=== PATIENT | male | born 1965 | race Caucasian/White ===

== ENCOUNTER 2021-10-26 20:40 | Observation (INO) ==
[2021-10-26] MEDS ORDERED: NITROGLYCERIN 2% OINTMENT 30GM TUBE EXT STA (20:54)
[2021-10-26 21:13] LABS: Basophils # (auto) 0.02 K/uL (0-0.2); Basophils % (auto) 0.2 %; Eosinophils # (auto) 0.25 K/uL (0-0.5); Eosinophils % (auto) 2.9 %; Hematocrit (blood only) 40.3 % (42-52); Hemoglobin 13.8 g/dL (14.0-18.0); Lymphocytes # (auto) 1.72 K/uL (1.2-3.4); Lymphocytes % (auto) 20.1 %; Mean Corpuscular Hemoglobin 30.9 pg (25-34); Mean Corpuscular Hgb Conc 34.2 g/dL (32-36); Mean Corpuscular Volume 90.2 fL (80-100); Monocytes # (auto) 1.13 K/uL (0.11-0.59); Monocytes % (auto) 13.2 %; Neutrophils # (auto) 5.44 K/uL (1.4-6.5); Neutrophils % (auto) 63.6 %; Platelet Count 198 K/uL (130-400); RDW Coefficient of Variation 13.7 % (11.5-14.5); Red Blood Count 4.47 M/uL (4.7-6.1); White Blood Count 8.56 K/uL (4.8-10.8)
--- NOTE | 2021-10-26 21:15 | Emergency Department Note ---
Impression & Plan Precordial chest pain ED Provider Note NAME: JACQUES JAIN AGE: 56 SEX: M : 1965 ARRIVES VIA: Ambulance INFORMANT: [Patient] ED PROVIDER(S): [Leonard Chaparro MD] CHIEF COMPLAINT: Chest pain HISTORY OF PRESENT ILLNESS: The patient is a 56-year-old male presents to the ER with about 2 days of chest discomfort. The pain is a weight across the center of his chest and is a 5/10. There is some radiation to his back. The patient states the pain got a bit better after taking some ygly-spt-ucrdvaq pain meds. He did try some antacids with no relief. Today, the pain seemed to worsen a bit. He went to [facility] and was referred to the ER. At [facility], he was given 4 baby aspirin, he received 3 nitroglycer[address] sprays on the way to our ED, this really did not help. The patient has no known heart disease. He does have some anxiety and blood pressure issues. He does not smoke. His father has had cardiac stenting. Of note, the patient did return from [place] about a week and a half ago. He has no history of DVT or PE. The patient states that he did take a Xanax tablet yesterday morning before a meeting. He did well in the meeting. His pain started after the meeting and after the stress of the day was over. REVIEW OF SYSTEMS: See HPI for pertinent positives and negatives. A total of ten systems were reviewed and were otherwise negative. PMHx/PSHx: See Below SOCIAL HISTORY: See Below. PHYSICAL EXAM: GENERAL: Patient is in no acute distress. HEENT: No acute trauma, normocephalic atraumatic, mucous membranes moist, no nasal congestion, no scleral icterus. NECK: No stridor, no adenopathy, no meningismus, trachea is midline. LUNGS: Clear to auscultation bilaterally, no wheeze, no rhonchi, breath sounds equal. HEART: Without murmurs gallops or rubs, regular rate and rhythm. Chest: Very mildly tender across the midsternal chest wall. ABDOMEN: Soft, nontender, bowel sounds positive, no hernias, no peritonitis. EXTREMITIES: No cyanosis or edema, full range of motion of all the joints without pain or difficulty, no signs for acute trauma. NEUROLOGIC: Oriented x 3, no acute motor or sensory deficits, no focal weakness. SKIN: No rash, no jaundice, no diaphoresis. DIFFERENTIAL DIAGNOSIS: Cardiac ischemia, aortic dissection, pulmonary embolism, pneumothorax, pneumonia, pericarditis, myocarditis, esophageal rupture, GERD, cholecystitis, pancreatitis, musculoskeletal, as well as other pathologies. EMERGENCY DEPARTMENT COURSE/PROCEDURES: ECG: Indication was chest pain. The ECG shows a sinus tachycardia with a rate of 102. There is no ST elevation, no PVCs. The QTc is 469. Continuous Cardiac Monitoring: An order was placed for continuous cardiac monitoring. The monitor shows a rate of 90 with normal sinus rhythm. MEDICAL DECISION MAKING: There is no leukocytosis or concerning anemia. There is a normal platelet count. No significant electrolyte abnormality or renal failure. No concerning liver enzyme elevation. ECG shows a sinus tachycardia, no ST elevation. Cardiac enzyme testing x1 is not consistent with acute cardiac injury. No evidence for pancreatitis. Chest film does not show pneumonia, mediastinal widening or CHF. Chest CT does not show PE or evidence for aortic dissection. The patient was given nitroglycerin paste, he seems comfortable. He feels improved. The patient presents with chest discomfort. He does have some cardiac risk factors. I do think a hospital stay and further cardiac work-up would be warranted. I did speak with the patient and case management. The on-call hospitalist was consulted. Past Med/Surg History Medical History Hypertension Social History Smoking Status: Unknown if ever smoked Feels Safe at Home: Yes Allergies Allergies Allergy/AdvReac Type Severity Reaction Status Date / Time amoxicillin Allergy Hives, Verified 10/26/21 21:46 nausea & vomiting Home Meds Home Medications Medication Instructions Recorded Confirmed alprazolam 0.5 mg tablet 0.5 mg PO DAILY PRN 10/26/21 10/26/21 cholecalciferol (vitamin D3) 125 125 mcg PO DAILY 10/26/21 10/26/21 mcg (5,000 unit) tablet (Vitamin D3) coQ10 (ubiquinol) 100 mg capsule 0 mg PO DAILY 10/26/21 10/26/21 irbesartan 150 mg tablet 150 mg PO DAILY 10/26/21 10/26/21 magnesium oxide 400 mg PO 4XWK 10/26/21 10/26/21 multivitamin 1 tab PO DAILY 10/26/21 10/26/21 rosuvastatin 10 mg tablet 10 mg PO DAILY 10/26/21 10/26/21 zinc 25 mg tablet 0 mg PO 4XWK 10/26/21 10/26/21 Results & Data (ED) Vital Signs Vital Signs - 24 hr 10/26/21 20:49 10/26/21 21:09 10/26/21 21:15 Temperature 36.9 C Temperature Source Oral Pulse Rate 102 H 90 89 Pulse Rate from SpO2 Sensor 89 Pulse Rhythm Regular Regular Respiratory Rate 14 18 22 Respiratory Effort / Characteristics Non-Labored Spontaneous Respiratory Depth Normal Respiratory Pattern Regular Blood Pressure 138/86 Blood Pressure Mean 103 Blood Pressure Position Sitting Pulse Oximetry 95 98 98 Oxygen Delivery Method Room Air Room Air Sepsis Recent Fever Within 48 Hours No Sepsis New/Unexplained Change in Mental Status N/A Sepsis Action Taken by Nursing No Action Required 10/26/21 21:30 10/26/21 22:00 10/26/21 22:18 Temperature Temperature Source Pulse Rate Pulse Rate from SpO2 Sensor 89 97 H Pulse Rhythm Respiratory Rate 22 21 Respiratory Effort / Characteristics Respiratory Depth Respiratory Pattern Blood Pressure 147/79 H 145/88 H Blood Pressure Mean 101 107 Blood Pressure Position Pulse Oximetry 97 96 Oxygen Delivery Method Room Air Sepsis Recent Fever Within 48 Hours Sepsis New/Unexplained Change in Mental Status Sepsis Action Taken by Nursing 10/26/21 22:30 10/26/21 22:52 10/26/21 23:00 Temperature Temperature Source Pulse Rate 88 94 H 90 Pulse Rate from SpO2 Sensor 89 Pulse Rhythm Respiratory Rate 21 15 20 Respiratory Effort / Characteristics Respiratory Depth Respiratory Pattern Blood Pressure 139/79 125/68 125/72 Blood Pressure Mean 99 87 89 Blood Pressure Position Pulse Oximetry 96 Oxygen Delivery Method Sepsis Recent Fever Within 48 Hours Sepsis New/Unexplained Change in Mental Status Sepsis Action Taken by [facility] Medications Current Medication List: was personally reviewed by me Laboratory Data Attestation: I reviewed the patient's lab results. Result diagrams: 10/26/21 21:00 10/26/21 22:54 Lab Results 10/26/21 10/26/21 10/26/21 Range/Units 21:00 21:00 21:00 WBC 8.56 (4.8-10.8) K/uL RBC 4.47 L (4.7-6.1) M/uL Hgb 13.8 L (14.0-18.0) g/dL Hct 40.3 L (42-52) % MCV 90.2 (80-100) fL MCH 30.9 (25-34) pg MCHC 34.2 (32-36) g/dL RDW Std Deviation 45.0 (36.4-46.3) fL RDW Coeff of Shanae 13.7 (11.5-14.5) % Plt Count 198 (130-400) K/uL MPV 9.0 (7.4-10.4) fL Immature Gran % (Auto) 0.0 % Neut % (Auto) 63.6 % Lymph % (Auto) 20.1 % [place] % (Auto) 13.2 % Eos % (Auto) 2.9 % Baso % (Auto) 0.2 % Neut # (Auto) 5.44 (1.4-6.5) K/uL Lymph # (Auto) 1.72 (1.2-3.4) K/uL [place] # (Auto) 1.13 H (0.11-0.59) K/uL Eos # (Auto) 0.25 (0-0.5) K/uL Baso # (Auto) 0.02 (0-0.2) K/uL Immature Gran # (Auto) 0.00 (0.00-0.02) K/uL PT 10.3 (9.0-12.0) Seconds INR 1.0 (0.9-1.1) APTT 23.5 (21.0-31.0) Seconds PTT Ratio 0.9 Sodium 139 (136-145) mmol/L Potassium (3.5-5.1) mmol/L Chloride 103 (98-107) mmol/L Carbon Dioxide 28 (21-32) mmol/L Anion Gap 8 (3-11) BUN 17 (6-23) mg/dl Creatinine 1.04 (0.6-1.4) mg/dl Est Cr Clr Drug Dosing Not Reportable Est GFR ( Amer) 93.9 ml/min Est GFR (Non-Af Amer) 81.0 ml/min BUN/Creatinine Ratio 16.3 (10-20) Glucose 127 H (70-99(Fasting)) mg/dl Calcium 8.7 (8.5-10.1) mg/dl Total Bilirubin 0.4 (0.2-1.0) mg/dl AST (13-39) U/L ALT 32 (7-52) U/L Alkaline Phosphatase 51 (34-104) U/L Troponin I < 0.03 (0-0.04) ng/ml Total Protein 6.8 (6.0-8.3) gm/dl Albumin 4.3 (3.4-5.0) gm/dl Globulin 2.5 (2.5-4.0) gm/dl Albumin/Globulin Ratio 1.7 (0.9-2) Lipase 21 (11-82) U/L 10/26/21 10/26/21 Range/Units 22:17 22:54 WBC (4.8-10.8) K/uL RBC (4.7-6.1) M/uL Hgb (14.0-18.0) g/dL Hct (42-52) % MCV (80-100) fL MCH (25-34) pg MCHC (32-36) g/dL RDW Std Deviation (36.4-46.3) fL RDW Coeff of Shanae (11.5-14.5) % Plt Count (130-400) K/uL MPV (7.4-10.4) fL Immature Gran % (Auto) % Neut % (Auto) % Lymph % (Auto) % [place] % (Auto) % Eos % (Auto) % Baso % (Auto) % Neut # (Auto) (1.4-6.5) K/uL Lymph # (Auto) (1.2-3.4) K/uL [place] # (Auto) (0.11-0.59) K/uL Eos # (Auto) (0-0.5) K/uL Baso # (Auto) (0-0.2) K/uL Immature Gran # (Auto) (0.00-0.02) K/uL PT (9.0-12.0) Seconds INR (0.9-1.1) APTT (21.0-31.0) Seconds PTT Ratio Sodium (136-145) mmol/L Potassium 3.8 (3.5-5.1) mmol/L Chloride (98-107) mmol/L Carbon Dioxide (21-32) mmol/L Anion Gap (3-11) BUN (6-23) mg/dl Creatinine (0.6-1.4) mg/dl Est Cr Clr Drug Dosing Est GFR ( Amer) ml/min Est GFR (Non-Af Amer) ml/min BUN/Creatinine Ratio (10-20) Glucose (70-99(Fasting)) mg/dl Calcium (8.5-10.1) mg/dl Total Bilirubin (0.2-1.0) mg/dl AST 18 (13-39) U/L ALT (7-52) U/L Alkaline Phosphatase (34-104) U/L Troponin I (0-0.04) ng/ml Total Protein (6.0-8.3) gm/dl Albumin (3.4-5.0) gm/dl Globulin (2.5-4.0) gm/dl Albumin/Globulin Ratio (0.9-2) Lipase (11-82) U/L Administered Medications Discontinued Medications Ioversol (Optiray 320 125ml) 125 ml IV ONCE ONE Stop: 10/26/21 22:57 Last Admin: 10/26/21 22:56 Dose: 118 ml Documented by: [id number] Nitroglycerin (Nitroglycerin 2% Ointment 30gm Tube) 1 inch EXT NOW STA Stop: 10/26/21 20:55 Last Admin: 10/26/21 21:11 Dose: 1 inch Documented by: [id number] Imaging Data Attestation: I personally reviewed and interpreted this imaging study as follows: My Impression: Chest x-ray: There is no mediastinal widening, pneumonia or pneumothorax. Radiologist's Impression: CTA CHEST: No prior exam for comparison. Minimal posterior subpleural atelectasis, otherwise normal lung parenchyma. No acute cardiopulmonary process seen. No pleural effusion or pneumothorax. Normal cardiac size. Mild atherosclerotic disease throughout the aortic arch otherwise normal aorta with no dissection or aneurysm. No pulmonary embolus. Visualized upper abdominal structures are unremarkable. Degenerative disease of the spine. Radiologist: Vicky Hernandez MD Discharge Plan Visit Data Chief Complaint: Chest Pain Stated Complaint: CHEST PAIN ED Provider: Leonard Chaparro Discharge Problem: Precordial chest pain Patient Disposition: Admitted As Inpatient Condition: Good Forms Stand Alone Forms: My [employer] Prescriptions Prescriptions: No Action multivitamin Tablet 1 tab PO DAILY RF: 0 alprazolam 0.5 mg tablet 0.5 mg PO DAILY PRN (Reason: Anxiety) RF: 0 zinc 25 mg Tablet 0 mg PO 4XWK RF: 0 irbesartan 150 mg tablet 150 mg PO DAILY RF: 0 rosuvastatin 10 mg tablet 10 mg PO DAILY RF: 0 cholecalciferol (vitamin D3) [Vitamin D3] 125 mcg (5,000 unit) Tablet 125 mcg PO DAILY RF: 0 coQ10 (ubiquinol) 100 mg Capsule 0 mg PO DAILY RF: 0 magnesium oxide 400 mg magnesium Tablet 400 mg PO 4XWK RF: 0 Referrals Referrals: PCP,NO [Physician] -
[2021-10-26 21:24] LABS: Partial Thromboplastin Ratio 0.9; Partial Thromboplastin Time 23.5 Seconds (21.0-31.0); Prothrombin Time 10.3 Seconds (9.0-12.0)
[2021-10-26 21:36] LABS: Troponin I < 0.03 ng/ml (0-0.04)
[2021-10-26 21:58] LABS: Alanine Aminotransferase 32 U/L (7-52); Albumin Globulin Ratio 1.7 (0.9-2); Albumin Level 4.3 gm/dl (3.4-5.0); Alkaline Phosphatase 51 U/L (34-104); Anion Gap 8 (3-11); BUN Creatinine Ratio 16.3 (10-20); Bilirubin,Total 0.4 mg/dl (0.2-1.0); Blood Urea Nitrogen 17 mg/dl (6-23); Calcium 8.7 mg/dl (8.5-10.1); Carbon Dioxide 28 mmol/L (21-32); Chloride 103 mmol/L (98-107); Est GFR (African American) 93.9 ml/min; Globulin 2.5 gm/dl (2.5-4.0); Glucose 127 mg/dl (70-99(Fasting)); Lipase 21 U/L (11-82); Sodium 139 mmol/L (136-145); Total Protein 6.8 gm/dl (6.0-8.3)
[2021-10-26] MEDS ORDERED: OPTIRAY 320 125ml IV ONE (22:56)
[2021-10-26 23:37] LABS: Potassium 3.8 mmol/L (3.5-5.1)
[2021-10-27] MEDS ORDERED: ACETAMINOPHEN 500 MG TAB PO PRN (00:23)
[2021-10-27] MEDS ORDERED: ONDANSETRON INJ 2 MG/ML 2 ML VIAL IV PRN (00:23)
--- NOTE | 2021-10-27 00:27 | History & Physical Report ---
Date of Service October 27, 2021 Assessment & Plan (1) Anxiety: Plan: 56-year-old gentleman with a past medical history of hypertension, hyperlipidemia, anxiety presents for evaluation of 2 days of chest discomfort being admitted for chest pain rule out. #Chest pain rule out Patient presenting with a 2-day history of chest pain, has not experienced previous chest pain describes the pain as a heavy weight in the center of his chest. He does have a family history of coronary artery disease with stenting and is currently on rosuvastatin for hyperlipidemia. Patient symptoms are aggravated with exertion and alleviated by rest. Patient did not respond to aspirin or nitroglycerin therapy. ECG and admission labs are not consistent with myocardial infarction. -admit to telemetry for observation -Stress echo in the morning -EKG with chest pain -Follow-up cardiac labs -Will check amylase and lipase to rule out alternative etiologies -Continue to reviewed the importance of risk factor modification with the patient -Day team to decide the need for cardiology consultation #Hyperlipidemia -Continue rosuvastatin 10 mg #Hypertension -Continue irbesartan 150 mg p.o. daily #Anxiety -As needed Xanax 0.5 mg FENa: N.p.o. for stress echo Code Status: Full code DVT PPX: Lovenox PT/OT: Not indicated Case Management: Not indicated Dispo: Telemetry Nick Centeno MD PGY 3, FCM This chart was completed utilizing [employer] voice recognition software. Grammatical errors, random word insertions, pronoun errors, and in complete sentences are an occasional consequence of the system. Any questions or concerns about the content, text, or information contained within the body of this dictation should be addressed directly to the physician for clarification. (2) HLD (hyperlipidemia): (3) Chest pain: History of Present Illness Primary Care Provider: Isacc Live MD 56-year-old gentleman with a past medical history of hypertension, hyperlipidemia, anxiety presents for evaluation of 2 days of chest discomfort being admitted for chest pain rule out. Patient has been in his usual state of health recently denying any fevers or chills, nausea or vomiting, chest pressure or focal neurological symptoms. He notes that for the past 2 days he has been experiencing pain which she describes the weight across the center of his chest and rates as a 5 out of 10 with some radiation to his back. Patient states that his symptoms improved with some [id number] pain medications he tried antacids without relief. This morning the pain seemed to worsen a bit so he went to [facility] and was referred to the emergency department at [facility] he was given 4 baby aspirin, in route to the hospital he received 3 nitroglycerin sprays and these did not improve his symptoms. Patient has no known history of heart disease, his father has a history of coronary artery disease requiring stenting does have a history of anxiety. Patient notes that he took a Xanax yesterday morning before meeting, he did well in the meeting. He notes that his pain started after the meeting. He does think that his pain is exacerbated with exertion. Upon arrival to the emergency department EKG was obtained showing sinus tachycardia with a rate of [address] elevations no PVCs, QTC was 469. Routine l abs were obtained, CBC was notable for hemoglobin of 13.8, normal white count, coagulation studies were normal, serum chemistries were normal creatinine 1.04, liver function studies were normal, troponin was negative. Chest x-ray was negative, chest CTA demonstrating mild atherosclerotic disease through the at the aortic arch otherwise negative chest x-ray was negative. Given patient's presentation, hospital service was consulted for admission for chest pain rule out. Allergies Allergy/AdvReac Type Severity Reaction Status Date / Time amoxicillin Allergy Hives, Verified 10/26/21 21:46 nausea & vomiting Home Medications Medication Instructions Recorded Confirmed Type alprazolam 0.5 mg tablet 0.5 mg PO DAILY PRN 10/26/21 10/26/21 History cholecalciferol (vitamin D3) 125 125 mcg PO DAILY 10/26/21 10/26/21 History mcg (5,000 unit) tablet (Vitamin D3) coQ10 (ubiquinol) 100 mg capsule 0 mg PO DAILY 10/26/21 10/26/21 History irbesartan 150 mg tablet 150 mg PO DAILY 10/26/21 10/26/21 History magnesium oxide 400 mg PO 4XWK 10/26/21 10/26/21 History multivitamin 1 tab PO DAILY 10/26/21 10/26/21 History rosuvastatin 10 mg tablet 10 mg PO DAILY 10/26/21 10/26/21 History zinc 25 mg tablet 0 mg PO 4XWK 10/26/21 10/26/21 History Past Med/Surg History Medical History (Updated 10/27/21 @ 00:19 by Nick Centeno MD) Hypertension Social History Smoking Status: Unknown if ever smoked Feels Safe at Home: Yes Review of Systems Review of Systems: as above Physical Exam Physical Exam: General: No acute distress HEENT: Normocephalic atraumatic Neck: No significant lymphadenopathy, trachea midline, normal to visual in spection Cardiac: Regular rate and rhythm, normal S1, normal S2, I did not appreciated any significant murmurs rubs or gallops, I did not appreciate any significant pedal edema, No calf tenderness, capillary refill is less than 3 seconds Respiratory: Clear to auscultation bilaterally with symmetrical chest rise, I did not appreciate any significant wheezes, rales, rhonchi, no increased work of breathing GI: Normal bowel sounds, soft, nontender in all 4 quadrants, nondistended MSK: No sensory or motor changes, moves all extremities without issue, extremities are warm and well-perfused Skin: [place], clean, dry, intact. Neuro: Alert and oriented x4 Psych: Calm, cooperative, logical thought process Results & Data Results & Data ([facility]) Vital Signs (Past 12 Hours) Vital Signs Temp Pulse Resp BP Pulse Ox 10/26/21 23:00 90 20 125/72 10/26/21 22:52 94 H 15 125/68 10/26/21 22:30 88 21 139/79 96 10/26/21 22:00 21 145/88 H 96 10/26/21 21:30 22 147/79 H 97 10/26/21 21:15 89 22 98 10/26/21 21:09 90 18 98 10/26/21 20:49 36.9 C 102 H 14 138/86 95 Laboratory Results 10/26/21 10/26/21 10/26/21 Range/Units 22:54 22:17 21:00 WBC (4.8-10.8) K/uL RBC (4.7-6.1) M/uL Hgb (14.0-18.0) g/dL Hct (42-52) % MCV (80-100) fL MCH (25-34) pg MCHC (32-36) g/dL RDW Std Deviation (36.4-46.3) fL RDW Coeff of Shanae (11.5-14.5) % Plt Count (130-400) K/uL MPV (7.4-10.4) fL Immature Gran % (Auto) % Neut % (Auto) % Lymph % (Auto) % [place] % (Auto) % Eos % (Auto) % Baso % (Auto) % Neut # (Auto) (1.4-6.5) K/uL Lymph # (Auto) (1.2-3.4) K/uL [place] # (Auto) (0.11-0.59) K/uL Eos # (Auto) (0-0.5) K/uL Baso # (Auto) (0-0.2) K/uL Immature Gran # (Auto) (0.00-0.02) K/uL PT (9.0-12.0) Seconds INR (0.9-1.1) APTT (21.0-31.0) Seconds PTT Ratio Sodium 139 (136-145) mmol/L Potassium 3.8 (3.5-5.1) mmol/L Chloride 103 (98-107) mmol/L Carbon Dioxide 28 (21-32) mmol/L Anion Gap 8 (3-11) BUN 17 (6-23) mg/dl Creatinine 1.04 (0.6-1.4) mg/dl Est Cr Clr Drug Dosing Not Reportable Est GFR ( Amer) 93.9 ml/min Est GFR (Non-Af Amer) 81.0 ml/min BUN/Creatinine Ratio 16.3 (10-20) Glucose 127 H (70-99(Fasting)) mg/dl Calcium 8.7 (8.5-10.1) mg/dl Total Bilirubin 0.4 (0.2-1.0) mg/dl AST 18 (13-39) U/L ALT 32 (7-52) U/L Alkaline Phosphatase 51 (34-104) U/L Troponin I < 0.03 (0-0.04) ng/ml Total Protein 6.8 (6.0-8.3) gm/dl Albumin 4.3 (3.4-5.0) gm/dl Globulin 2.5 (2.5-4.0) gm/dl Albumin/Globulin Ratio 1.7 (0.9-2) Lipase 21 (11-82) U/L 10/26/21 10/26/21 Range/Units 21:00 21:00 WBC 8.56 (4.8-10.8) K/uL RBC 4.47 L (4.7-6.1) M/uL Hgb 13.8 L (14.0-18.0) g/dL Hct 40.3 L (42-52) % MCV 90.2 (80-100) fL MCH 30.9 (25-34) pg MCHC 34.2 (32-36) g/dL RDW Std Deviation 45.0 (36.4-46.3) fL RDW Coeff of Shanae 13.7 (11.5-14.5) % Plt Count 198 (130-400) K/uL MPV 9.0 (7.4-10.4) fL Immature Gran % (Auto) 0.0 % Neut % (Auto) 63.6 % Lymph % (Auto) 20.1 % [place] % (Auto) 13.2 % Eos % (Auto) 2.9 % Baso % (Auto) 0.2 % Neut # (Auto) 5.44 (1.4-6.5) K/uL Lymph # (Auto) 1.72 (1.2-3.4) K/uL [place] # (Auto) 1.13 H (0.11-0.59) K/uL Eos # (Auto) 0.25 (0-0.5) K/uL Baso # (Auto) 0.02 (0-0.2) K/uL Immature Gran # (Auto) 0.00 (0.00-0.02) K/uL PT 10.3 (9.0-12.0) Seconds INR 1.0 (0.9-1.1) APTT 23.5 (21.0-31.0) Seconds PTT Ratio 0.9 Sodium (136-145) mmol/L Potassium (3.5-5.1) mmol/L Chloride (98-107) mmol/L Carbon Dioxide (21-32) mmol/L Anion Gap (3-11) BUN (6-23) mg/dl Creatinine (0.6-1.4) mg/dl Est Cr Clr Drug Dosing Est GFR ( Amer) ml/min Est GFR (Non-Af Amer) ml/min BUN/Creatinine Ratio (10-20) Glucose (70-99(Fasting)) mg/dl Calcium (8.5-10.1) mg/dl Total Bilirubin (0.2-1.0) mg/dl AST (13-39) U/L ALT (7-52) U/L Alkaline Phosphatase (34-104) U/L Troponin I (0-0.04) ng/ml Total Protein (6.0-8.3) gm/dl Albumin (3.4-5.0) gm/dl Globulin (2.5-4.0) gm/dl Albumin/Globulin Ratio (0.9-2) Lipase (11-82) U/L Supervising Physician Co-Signing Physician Notes Patient seen and examined, chart reviewed. I agree with the assessment and plan as above Patient with left sided chest discomfort - ongoing x 2 days 56yo male, h/o HTN, HLP Troponin negative EKG with no acute ischemic changes Exam is unremarkable. Patient afebrile, HD stable No CW tenderness Lungs CTA Abd soft, NT/ND Ext warm, well perfused Assessment/Plan -Trend troponin -Cardiac monitoring -Stress test in AM -Remainder as above
[2021-10-27 01:21] LABS: Basophils # (auto) 0.02 K/uL (0-0.2); Basophils % (auto) 0.2 %; Eosinophils % (auto) 2.4 %; Hematocrit (blood only) 40.7 % (42-52); Hemoglobin 14.1 g/dL (14.0-18.0); Immature Granulocytes # (auto) 0.01 K/uL (0.00-0.02); Immature Granulocytes % (auto) 0.1 %; Lymphocytes # (auto) 1.65 K/uL (1.2-3.4); Lymphocytes % (auto) 19.9 %; Mean Corpuscular Hemoglobin 31.3 pg (25-34); Mean Corpuscular Hgb Conc 34.6 g/dL (32-36); Mean Corpuscular Volume 90.4 fL (80-100); Mean Platelet Volume 8.8 fL (7.4-10.4); Monocytes # (auto) 1.23 K/uL (0.11-0.59); Monocytes % (auto) 14.8 %; Neutrophils # (auto) 5.18 K/uL (1.4-6.5); Neutrophils % (auto) 62.6 %; Platelet Count 214 K/uL (130-400); RDW Coefficient of Variation 13.7 % (11.5-14.5); White Blood Count 8.29 K/uL (4.8-10.8)
--- NOTE | 2021-10-27 01:30 | Billing Data ---
Date of Service October 27, 2021 Coding Level of Care Code INT OBSERVATION CARE 50M LVL 2
[2021-10-27 01:42] LABS: Alanine Aminotransferase 30 U/L (7-52); Albumin Globulin Ratio 1.8 (0.9-2); Albumin Level 4.4 gm/dl (3.4-5.0); Alkaline Phosphatase 47 U/L (34-104); Amylase 48 U/L (25-115); Anion Gap 6 (3-11); Aspartate Aminotransferase 18 U/L (13-39); BUN Creatinine Ratio 19.3 (10-20); Bilirubin,Total 0.4 mg/dl (0.2-1.0); Blood Urea Nitrogen 17 mg/dl (6-23); Calcium 8.7 mg/dl (8.5-10.1); Carbon Dioxide 30 mmol/L (21-32); Chloride 104 mmol/L (98-107); Chol HDL Ratio 3.7 (0-5); Cholesterol 161 mg/dl (0-200); Est GFR (African American) 112.9 ml/min; Est GFR (Non-African American) 97.4 ml/min; Globulin 2.5 gm/dl (2.5-4.0); Glucose 97 mg/dl (70-99(Fasting)); HDL Cholesterol 43 mg/dl; LDL Cholesterol Calculated 91 mg/dl; Lipase 90 U/L (11-82); Sodium 140 mmol/L (136-145); Total Protein 6.9 gm/dl (6.0-8.3); Triglycerides 136 mg/dl (0-150); Troponin I < 0.03 ng/ml (0-0.04); VLDL Cholesterol 27 mg/dl (0-30)
[2021-10-27] MEDS ORDERED: ALPRAZolam 0.5 MG TABLET PO PRN (01:46)
[2021-10-27 01:53] LABS: Appearance Urine Clear (Clear); Bilirubin Urine Negative (Negative); Blood Urine Negative (Negative); Color Urine Yellow; Glucose Urine UA Negative (Negative); Ketones Urine Negative (Negative); Leukocyte Esterase Urine Negative (Negative); Nitrite Urine Negative (Negative); Protein Urine Negative (Negative); Specific Gravity Urine > 1.045 (1.000-1.030); Urobilinogen Urine Negative (Negative)
--- NOTE | 2021-10-27 07:11 | XRay Report ---
XR chest 1V portable CLINICAL HISTORY: Chest Pain. COMPARISON STUDY: No previous studies for comparison. TECHNIQUE: 1 view of the chest FINDINGS: Single frontal view of the chest demonstrates the cardiomediastinal silhouette to be within normal li mits. The lungs are clear of alveolar opacities. There is no evidence for pleural effusion. There is no evidence for vascular congestion. There is no acute osseous pathology. IMPRESSION: 1. No acute cardiopulmonary disease. ACT 112: Negative or not required by law. Electronically signed by: Noel Cheng M.D. 10/27/2021 7:10 AM
--- NOTE | 2021-10-27 07:16 | Hospitalist Progress Note ---
Date of Service October 27, 2021 Assessment & Plan (1) Chest pain: Plan: Aguilar is a 56 year old male w/ PMHx HTN, HLD, anxiety admitted for angina/coronary artery disease rule out. Chest Pain: -Patient with scheduled stress testing this morning. If positive consider cardiac catheterization to look for coronary artery stenosis contributing to chest pain. -Amylase, lipase unremarkable. Troponin <0.03 x2. -On telemetry. Continue to monitor for changes. HLD: -Continue home rosuvastatin. HTN: -Continue home Irbesartan. Anxiety: -Continue Xanax 0.5mg PRN. Dispo: Med/Tele Code Status: Full Code DVT PPX: Lovenox 40mg daily. (2) HLD (hyperlipidemia): (3) Hypertension: (4) Anxiety: Admission and Anticipated Discharge Date Admission Date: October 27, 2021 Subjective No overnight events. Patient endorsed that he had chest pain that felt like a burning during the middle of his morning meeting. The pain started at the center of the chest and would go up into his throat if he bent over. He has a history of reflux but did not eat anything prior to the onset of the chest pain. Said he tried to eat food afterwards to see if it would help but did not change the pain. This is the first time he has gotten the chest pain. Denies any chest pain this morning, shortness of breath, nausea or vomiting, fevers, chills. Physical Exam Constitutional: WD/WN, vitals as above Eyes: PERRL, conjunctivae normal, anicteric sclerae Respiratory: normal respiratory effort, lungs clear to auscultation Cardiovascular: RRR, no murmur, no edema No reproducable pain at sternum/costal margins. Gastrointestinal (Abdomen): normal bowel sounds, soft, nontender, no hepatosplenomegaly Results & Data Results & Data ([facility]) Vital Signs (Past 12 Hours) Vital Signs Temp Pulse Pulse Resp BP BP Pulse Ox 10/27/21 03:21 36.8 C 78 16 97/57 L 96 10/27/21 01:55 36.7 C 87 18 115/65 96 10/27/21 01:40 36.9 C 82 18 118/80 97 10/27/21 01:21 79 21 10/27/21 01:10 81 23 10/27/21 01:06 91 H 21 10/27/21 00:40 86 21 10/27/21 00:30 79 16 113/70 10/27/21 00:20 79 18 10/27/21 00:10 77 17 10/27/21 00:00 82 19 123/70 10/26/21 23:50 85 30 H 10/26/21 23:40 86 22 10/26/21 23:30 91 H 19 126/69 10/26/21 23:20 93 H 17 10/26/21 23:10 98 H 20 10/26/21 23:00 90 20 125/72 10/26/21 22:52 94 H 15 125/68 10/26/21 22:30 88 21 139/79 96 10/26/21 22:00 21 145/88 H 96 10/26/21 21:30 22 147/79 H 97 10/26/21 21:15 89 22 98 10/26/21 21:09 90 18 98 10/26/21 20:49 36.9 C 102 H 14 138/86 95
--- NOTE | 2021-10-27 08:05 | CT Scan Report ---
CT ANGIOGRAPHY OF THE CHEST, PULMONARY EMBOLUS PROTOCOL CLINICAL HISTORY: Shortness of breath. Chest pain. Back pain. Evaluate for pulmonary embolus. COMPARISON STUDY: Chest radiograph October 26, 2021. TECHNIQUE: Following IV administration of 118 mL of Optiray, helical axial images of the chest were o btained utilizing the pulmonary embolus protocol. Maximal intensity projections and sagittal and cor onal reformats were viewed on an independent 3D workstation. IV contrast was administered without co mplication. Automated exposure control was utilized for the study. A dose lowering technique was ut ilized adhering to the principles of ALARA. CT DOSE: 783.39 mGy.cm FINDINGS: No pulmonary emboli are identified although the lower lobe pulmonary arteries are suboptim ally opacified. There is no thoracic aortic dissection. Size of the heart is within normal limits. No pericardial effusion. No enlarged thoracic lymph nodes are noted. There is no consolidation to sugge st pneumonia. No pneumothorax or pleural effusion is noted. Linear and groundglass opacities reflect atelectasis. A 5 mm subpleural right lower lobe nodule on image 92 of 262 is probably benign. There i s probable hepatic steatosis. No acute fracture within visualized portions of the bony thorax. IMPRESSION: 1. No pulmonary emboli identified although lower lobe pulmonary arteries suboptimally opacified. 2. No acute process within the chest. 3. Probable hepatic steatosis. ACT 112: Negative or not required by law. Electronically signed by: Efren Villalba M.D. 10/27/2021 8:03 AM
[2021-10-27 08:15] LABS: Chol HDL Ratio 3.5 (0-5)
[2021-10-27 08:56] LABS: Estimated Average Glucose 103 mg/dl; Hemoglobin A1C 5.2 % (4.5-5.6)
[2021-10-27] MEDS ORDERED: ZINC SULFATE 220 MG CAPSULE PO SCH (09:00)
[2021-10-27] MEDS ORDERED: IRBESARTAN 150 MG TAB PO SCH (09:00)
[2021-10-27] MEDS ORDERED: POLYETHYLENE (MIRALAX) 17 GM PACK PO SCH (09:00)
[2021-10-27] MEDS ORDERED: CHOLECALCIFEROL 5,000 UNITS 125 MCG TAB PO SCH (09:00)
[2021-10-27] MEDS ORDERED: MULTIVITAMIN TAB PO SCH (09:00)
[2021-10-27] MEDS ORDERED: ENOXAPARIN INJ 40 MG/0.4 ML SYR SQ SCH (09:00)
[2021-10-27] MEDS ORDERED: NON-FORMULARY MEDICATION (Coq10 (Ubiquinol) 100 mg Capsule) PO SCH (09:00)
[2021-10-27] MEDS ORDERED: ROSUVASTATIN CALCIUM 10 MG TAB PO SCH (09:00)
--- NOTE | 2021-10-27 13:29 | Electrocardiogram Report ---
Test Reason : Blood Pressure : / mmHG Vent. Rate : 083 BPM Atrial Rate : 083 BPM P-R Int : 184 ms QRS Dur : 096 ms QT Int : 364 ms P-R-T Axes : 064 039 026 degrees QTc Int : 427 ms Normal sinus rhythm ST elevation, consider early repolarization, pericarditis, or injury Abnormal ECG When compared with ECG of 26-OCT-2021 20:43, No significant change was found Confirmed by Deejay Levi ([id number]) on 10/27/2021 1:29:24 PM Referred By: REFERRED SELF Confirmed By:Deejay Levi
--- NOTE | 2021-10-27 14:12 | XCELERA ---
[id number]
--- NOTE | 2021-10-27 17:00 | Discharge Summary ---
Date of Service October 27, 2021 Admission HPI Per Admitting Provider 56-year-old gentleman with a past medical history of hypertension, hyperlipidemia, anxiety presents for evaluation of 2 days of chest discomfort being admitted for chest pain rule out. Patient has been in his usual state of health recently denying any fevers or chills, nausea or vomiting, chest pressure or focal neurological symptoms. He notes that for the past 2 days he has been experiencing pain which she describes the weight across the center of his chest and rates as a 5 out of 10 with some radiation to his back. Patient states that his symptoms improved with some [id number] pain medications he tried antacids without relief. This morning the pain seemed to worsen a bit so he went to [facility] and was referred to the emergency department at [facility] he was given 4 baby aspirin, in route to the hospital he received 3 nitroglycerin sprays and these did not improve his symptoms. Patient has no known history of heart disease, his father has a history of coronary artery disease requiring stenting does have a history of anxiety. Patient notes that he took a Xanax yesterday morning before meeting, he did well in the meeting. He notes that his pain started after the meeting. He does think that his pain is exacerbated with exertion. Upon arrival to the emergency department EKG was obtained showing sinus tachycardia with a rate of [address] elevations no PVCs, QTC was 469. Routine labs were obtained, CBC was notable for hemoglobin of 13.8, normal white count, coagulation studies were normal, serum chemistries were normal creatinine 1.04, liver function studies were normal, troponin was negative. Chest x-ray was negative, chest CTA demonstrating mild atherosclerotic disease through the at the aortic arch otherwise negative chest x-ray was negative. Given patient's presentation, hospital service was consulted for admission for chest pain rule out. Admission Exam Per Admitting Provider General: No acute distress HEENT: Normocephalic atraumatic Neck: No significant lymphadenopathy, trachea midline, normal to visual inspection Cardiac: Regular rate and rhythm, normal S1, normal S2, I did not appreciated any significant murmurs rubs or gallops, I did not appreciate any significant pedal edema, No calf tenderness, capillary refill is less than 3 seconds Respiratory: Clear to auscultation bilaterally with symmetrical chest rise, I did not appreciate any significant wheezes, rales, rhonchi, no increased work of breathing GI: Normal bowel sounds, soft, nontender in all 4 quadrants, nondistended MSK: No sensory or motor changes, moves all extremities without issue, extremities are warm and well-perfused Skin: [place], clean, dry, intact. Neuro: Alert and oriented x4 Psych: Calm, cooperative, logical thought process Principal Diagnosis Anxiety/stress induced chest pain Discharge Exam Constitutional WD/WN, vitals as above Eyes PERRL, conjunctivae normal, anicteric sclerae Respiratory normal respiratory effort, lungs clear to auscultation Cardiovascular RRR, no murmur, no edema Gastrointestinal (Abdomen) normal bowel sounds, soft, nontender, no hepatosplenomegaly Discharge Data Allergies Allergy/AdvReac Type Severity Reaction Status Date / Time amoxicillin Allergy Hives, Verified 10/26/21 21:46 nausea & vomiting Consultations 10/26/21 23:48 ED Decision to Admit Stat Ordered Studies 10/26/21 20:54 CT angio chest PE protocol Urgent IMPRESSION: 1. No pulmonary emboli identified although lower lobe pulmonary arteries suboptimally opacified. 2. No acute process within the chest. 3. Probable hepatic steatosis. 10/26/21 12:00 Stress Echo: Negative stress echo for ischemia at 89% MPHR, Negative exercise EKG for ischemia at 89% MPHR. EF 60-65%, normal echo. Hospital Course (1) Chest pain: Aguilar is a 56 year old male w/ PMHx HTN, HLD, anxiety admitted for angina/coronary artery disease rule out. Chest Pain: -Negative stress echo for any ischemic changes in ECG or echo with EF 60-65%. -Most likely 2/2 anxiety/stress related. -Amylase, lipase unremarkable. Troponin <0.03 x2. -Unremarkable hospital course. -Encouraged patient to find outlets for stress, patient agreeable, saying mowing his lawn is a good outlet for him. -Will follow up outpatient. (2) HLD (hyperlipidemia): (3) Hypertension: (4) Anxiety: Total Time Total Time Spent Total Time Spent (In Minutes): Please see attending attestation. Discharge Plan Discharge Items Patient Disposition: Home - Self-Care Reason For Visit: CP RULEOUT Discharge Diagnosis: Chest pain Condition on Discharge: Good Activity: Per Instructions section Non-emergency contact: Primary Care Provider Call non-emergency contact if: your symptoms worsen, your pain is worsening and your temperature is above 101 Follow-up/Referrals: Isacc Live MD [Primary Care Provider] - Diet: Regular Addtl Attending Provider Instructions: A discharge summary will be sent to your primary care physician to ensure continuity of care. You came in to the hospital for unusual chest pain that occurred yesterday. While in the hospital you had a full workup for any concern for cardiac cause of your chest pain. An electrocardiogram (EKG) did not show any signs of decreased oxygen to your heart or myocardial infarction. We also obtained labs such as a complete blood count, complete metabolic panel for electrolytes, and urinalysis that were within normal limits. We obtained blood work for a marker called Troponin which is a sign of heart attack, this was negative and not detectable. Your triglycerides were mildly elevated at 169, cholesterol was good at 139, and HDL looked good at 40. Because of your family history of cardiac disease and your age we had you do a stress test to see if your heart had signs of decreased oxygen which would imply stenosis of the coronary arteries. Your stress test looked good with good response from your heart and without abnormalities on echocardiogram (Ultrasound of your heart). Due to cardiac etiology being ruled out this may have been more of an anxiety related pain you were experiencing. Please follow up with your primary care doctor for follow up on today's visit. Follow-up: * You should be seen by your primary physician within the next few weeks. Medications: Your medication list has been reviewed and reconciled upon discharge to ensure accuracy and continuity of care. An updated list of all your medications is included with your hospital discharge paperwork. Please review this list closely, and make note of any changes. Take your medications as instructed; do not skip a dose of your medicines. Make sure all of your doctors know every medicine you are taking (including ytqd-fta-znkucpe medicines, vitamins, and supplements). let your primary care provider know before taking any new medicines because some of these may interact with your current medications, or may make your symptoms worse. CONTACT YOUR PRIMARY CARE PROVIDER if you experience any of the following: * Fevers or shaking chills * Shortness of breath not relieved by inhalers, fainting * Sudden abdominal distension not relieved by catheterization. * Difficulty following your treatment plan, or difficulty taking medications CALL 911 OR GO TO THE EMERGENCY DEPARTMENT if you experience any of the following: * Sudden, severe abdominal pain or nausea/vomiting * Severe chest pain, or chest pain that radiates (moves) to your jaw or arm * Sudden, severe shortness of breath or difficulty breathing It was was our pleasure taking care of you here at [facility] . Thank you for allowing us to participate in your care. Pending Studies at Discharge: No Stand-Alone Forms: My [facility] [email or web address], Smoking Cessation Medications and DC Order Prescriptions: Continued multivitamin Tablet 1 tab PO DAILY RF: 0 alprazolam 0.5 mg tablet 0.5 mg PO DAILY PRN (Reason: Anxiety) RF: 0 zinc 25 mg Tablet 0 mg PO 4XWK RF: 0 irbesartan 150 mg tablet 150 mg PO DAILY RF: 0 rosuvastatin 10 mg tablet 10 mg PO DAILY RF: 0 cholecalciferol (vitamin D3) [Vitamin D3] 125 mcg (5,000 unit) Tablet 125 mcg PO DAILY RF: 0 coQ10 (ubiquinol) 100 mg Capsule 0 mg PO DAILY RF: 0 magnesium oxide 400 mg magnesium Tablet 400 mg PO 4XWK RF: 0 Discharge Orders: Discharge Order (Routine); Ordered 10/27/21 Ordered By: Curt Darby Admission Data Admit Date/Time: 10/27/21 00:26 Attending Provider: Yuri Macedo Admit Provider: Kayla Centeno Primary Care Provider: Isacc Live Other Providers: Kayla Centeno Other Interventions: Discharge Summary Assessment (RN) Last Done: 10/27/21 16:19 Supervising Physician Co-Signing Physician Notes I personally examined the patient and verified all barnes points of history and exam, discussed case, and agree with decision making with Dr Darby Feeling okay. Thinks it was probably stress related. Stress test negative. Vitals noted, in general he is awake and alert pleasant no distress. HEENT normocephalic atraumatic mucous membranes moist. Breathing unlabored no accessory muscle use good effort. Skin shows no rashes no pallor or icterus. Neuro without focal deficits. Chest painalmost certainly stress related. Discussed stress management techniques, as well as discussing with PCP and following. Given negative work- up, safe/stable for home Otherwise as above Resident Activity Tracking Resident Involvement: Resident Care Provided Care Provided: Adult Hospital Medicine
--- NOTE | 2021-10-27 19:15 | Billing Data ---
Date of Service October 27, 2021 Coding Level of Care Code 82638 OBS Care - Discharge
--- NOTE | 2021-10-27 21:40 | Electrocardiogram Report ---
Test Reason : Blood Pressure : / mmHG Vent. Rate : 102 BPM Atrial Rate : 102 BPM P-R Int : 164 ms QRS Dur : 096 ms QT Int : 360 ms P-R-T Axes : 039 064 035 degrees QTc Int : 469 ms Sinus tachycardia Nonspecific T wave abnormality No previous ECGs available Confirmed by Deejay Levi ([id number]) on 10/27/2021 9:40:29 PM Referred By: REFERRED SELF Confirmed By:Deejay Levi
[2021-10-28] MEDS ORDERED: MAGNESIUM OXIDE 400 MG TAB PO SCH (09:00)
== END 2021-10-27 16:45 | disposition home or self-care (01) ==
LOC: 2S 20:40 → ED 20:40 → SUATTDRO 10-27 00:26 → 2S 10-27 01:40
DX: Z79.899 Other long term (current) drug therapy; E78.5 Hyperlipidemia, unspecified; Z88.0 Allergy status to penicillin; I10 Essential (primary) hypertension; F41.9 Anxiety disorder, unspecified; R07.2 Precordial pain